=== PATIENT | female | born 1965 | race Caucasian/White ===

== ENCOUNTER 2019-04-22 12:55 | Day surgery (SDC) | payer OTHER, SELFPAY ==
[2019-04-22] VITALS (9 sets, daily range): BP systolic 98–126; BP diastolic 58–72; PULSE 76–96; RESP 12–18; TEMP 37.3–37.7; O2SAT 94–100; BMI 37.3
--- NOTE | 2019-04-22 13:14 | W.ED.ABDPA2 ---
HPI - Abdominal Pain General: Chief Complaint: Abdominal Pain Stated Complaint: RIGHT SIDE PAIN Time Seen by Provider: 04/22/19 13:14 Source: patient Mode of arrival: ambulatory Limitations: no limitations History of Present Illness: HPI narrative: Patient is a very nice 53-year-old female who presents to ED today with complaints of right lower abdominal pain that she initially noticed on Saturday; patient states pain has progressively worsened since onset; she complains of some associated nausea without vomiting; states she has not had a bowel movement since Saturday; she reports urinary habits are normal; she reports low-grade fevers of 99 as well as associated chills; previous abdominal surgeries include a cholecystectomy MD elicited complaint: abdominal pain Pertinent past history: none Onset (ago): day(s) Pain Consistency: constant Location: None Exacerbating factors: nothing Relieving factors: nothing Associated Symptoms: Reports chills and nausea; Denies change in stool character, coffee ground emesis, constipation, GI cramping, diarrhea, dysuria, excessive flatus, fever(s), heartburn, hematochezia, hematemesis, syncope and vomiting Review of Systems Const: Reports: chills; Denies: fever, body aches, fatigue or malaise Eyes: Denies: change in vision or blurry vision ENMT: Denies: enlarged tonsils or painful swallowing Card: Denies: chest pain, palpitations, irregular heart rhythm, lightheadedness, syncope or shortness of breath on exertion Resp: Denies: shortness of breath, productive cough or pain on inspiration GI: Reports: abdominal pain and nausea; Denies: vomiting, vomiting blood, coffee grounds in vomit, difficulty swallowing, heartburn/indigestion, diarrhea, constipation, cramping, excessive passing of gas, painful bowel movements, rectal pain, change in stool character or blood in stool : Denies: flank pain, difficulty urinating, painful urination, urinary frequency, urinary urgency, urinary hesitancy, vaginal odor, vaginal bleeding, vaginal discharge or pelvic pain Musc: Denies: neck pain, back pain or joint pain Skin/Breast: Denies: rash Neuro: Denies: headache PFSH ED PFSH: Statuses (acute, chronic, etc) shown below reflect problem list status as previously entered and may not be historically accurate Social History Smoking and tobacco status: never smoked Physical Exam Const: COMMON NORMALS: no apparent distress, oriented x3, no limitations, alert and well nourished Resp: COMMON NORMALS: normal respiratory effort and clear to auscultation bilaterally AUSCULTATION: clear to auscultation bilaterally Cardio: COMMON NORMALS: regular rate and regular rhythm RATE: regular rate RHYTHM: regular rhythm GI: COMMON NORMALS: soft to palpation, no hepatosplenomegaly and no masses AUSCULTATION: Yes normoactive bowel sounds PALPATION: Yes soft, Yes tender Details: LLQ and RLQ and Yes no hepatosplenomegaly : COMMON NORMALS: Yes no CVA tenderness BLADDER/KIDNEY EXAM: Yes no CVA tenderness Back/Pelvis: COMMON NORMALS: no CVA tenderness Neuro: COMMON NORMALS: oriented x3 SENSORIUM/ORIENTATION: Yes alert Skin: COMMON NORMALS: no rashes or lesions noted GENERAL SKIN EXAM: no rashes or lesions noted Course Consultations: Consultation #1: Dr. Mancini-will come see in ED and take to surgery Time: 15:15 Vital Signs: Vital signs: Vital Signs Temperature 99.2 F 04/22/19 12:57 Pulse Rate 90 04/22/19 14:24 Respiratory Rate 17 04/22/19 14:24 Blood Pressure 122/62 04/22/19 14:24 Pulse Oximetry 94 04/22/19 14:24 MDM - Abdominal Pain MDM Narrative: Medical decision making narrative: Pt will go straight to OR for appendectomy per Dr. Harrison Lab Data: Labs: Lab Results 04/22/19 04/22/19 04/22/19 Range/Units 13:10 13:20 13:20 WBC 15.5 H (4.0-10.0) 10^3/ uL RBC 5.56 H (4.1-5.3) 10^6/u L Hgb 14.4 (11.5-15.3) g/dL Hct 46.2 (37.0-47.0) % MCV 83.1 (81-99) fL MCH 25.9 L (28.0-34.0) pg MCHC 31.2 (30.0-36.0) g/dL RDW 13.2 (12.1-15.1) % Plt Count 333 (130-400) 10^3/c mm MPV 9.6 (7.4-10.4) fL Neut % (Auto) 85.8 % Lymph % (Auto) 8.5 % [place] % (Auto) 5.2 % Eos % (Auto) 0.0 % Baso % (Auto) 0.2 % Neut # (Auto) 13.3 H (1.8-7.7) 10^3/u L Lymph # (Auto) 1.3 (0.8-4.8) 10^3/u L [place] # (Auto) 0.8 (0.2-0.9) 10^3/u L Eos # (Auto) 0.0 (0.0-0.8) 10^3/u L Baso # (Auto) 0.0 (0.0-0.1) 10^3/u L Nucleated RBC % (a uto) 0 % Nucleated RBCs # 0.0 /100WBC Sodium 134 L (136-145) mmol/L Potassium 3.6 (3.5-5.1) mmol/L Chloride 93 L (98-107) mmol/L Carbon Dioxide 25 (22-29) mmol/L Anion Gap 19.6 H (5-19) BUN 18 (6-20) mg/dL Creatinine 0.8 (0.5-0.9) mg/dL GFR Calculation 74.7 L (90-130) mL/min Glucose 121 H (74-109) mg/dL Calcium 9.5 (8.5-10.5) mg/dL Total Bilirubin 0.5 (0.15-1.2) mg/dL AST 13 (0-32) U/L ALT 14 (0-33) U/L Alkaline Phosphata se 100 (35-105) IU/L Total Protein 8.8 H (6.6-8.7) g/dL Albumin 4.1 (3.5-5.2) g/dL Globulin 4.7 H (1.3-4.6) g/dL Urine Color Yellow (Yellow) Urine Appearance Sl hazy (CLEAR) Urine pH 5.0 (5-7) Ur Specific Gravit y 1.025 (1.005-1.030) Urine Protein 1+ H (Negative) Urine Glucose (UA) Norm (Normal) Urine Ketones 2+ H (Negative) Urine Occult Blood 3+ H (Negative) Urine Nitrate Negative (Negative) Urine Bilirubin 1+ H (NEGATIVE) Urine Urobilinogen 4 H (Negative) mg/dL Ur Leukocyte Ligia ase Negative (Negative) Urine RBC 10-15 H (0-2) /hpf Urine WBC None (0-5) /hpf Ur Squamous Epith Cells 15-25 H (0-5) Urine Bacteria 2+ H (NONE) Urine Mucus 2+ Imaging Data ^: CT Abd/Pel: Radiologist's impression: [address] [address] [address] Scan Report Signed Patient: Nette Sterling Unit #: [id number] : 1965 Age/Sex: 53 / F ADM Date: 04/22/19 Loc: ER Room/Bed: Attending Dr: Ordering Provider/Ordering MD: Christy Yan Date of Service: 04/22/19 Procedure(s): CT abdomen pelvis w con* [id number] Accession Number(s): [id number] Report Number: [id number] WS: [id number] CT ABDOMEN PELVIS TECHNIQUE: Contrast-enhanced CT of the abdomen and pelvis with coronal and sagittal reformatted images. CLINICAL INFORMATION: RLQ pain COMPARISON: None. DLP: 1484.[address] scans at [facility] use at least one of these dose optimization techniques: automated exposure control; mA and/or kV adjustment per patient size (includes targeted exams where dose is matched to clinical indication); or iterative reconstruction. FINDINGS: Dilated tortuous fluid-filled appendix in the right lower quadrant measuring 7 mm in transverse dimension. Surrounding inflammatory stranding and edema. Tiny amount of fluid. No evidence of perinephric abscess. No free air. Liver is normal. Normal portal vein and splenic vein. Cholecystectomy clips. Normal spleen. Normal GE junction. Bibasilar atelectasis. Adrenal glands are normal. Normal renal parenchymal enhancement. No hydronephrosis. Normal pancreas. Normal caliber abdominal aorta. No periaortic lymphadenopathy. Incidental fat-containing umbilical hernia. Notified JIA Goddard at 04/22/2019 3:[address]/CT abdomen pelvis w con* [id number] IMPRESSION: 1. Tortuous dilated fluid-filled appendix with inflammatory stranding consistent with acute appendicitis. No abscess. 2. No free fluid in the pelvis. 3. Prior cholecystectomy. 4. No hydronephrosis. Dictated By: Khang Rosa MD Signed By: Khang Rosa MD Signed Date/Time: 04/22/19 1517 DD/ 1502 Discharge Plan Discharge Patient Disposition: Admitted As Inpatient Clinical Impression: Acute appendicitis Qualifiers: Acute appendicitis type: with localized peritonitis Appendicitis gangrene presence: without gangrene Appendicitis perforation presence: without perforation Appendicitis abscess presence: without abscess Qualified Code(s): K35.30 - Acute appendicitis with localized peritonitis, without perforation or gangrene Condition: Stable Referrals: Vianca Campos DO [Primary Care Provider] - Coding Level of Care Code ED Glass Engraver for [facility]g Fwd Exam Problem Focused
--- NOTE | 2019-04-22 13:24 | PC.NURSE ---
Patient reports that she started hurting Saturday. Patient states that the symptoms has progressively got worse. Patient reports that she has had nausea, fever, and chills along with this. Patient states the pain is in her right lower abdomen. Patient reports that she has only had her gallbladder removed.
[2019-04-22 13:28] LABS: Basophils % 0.2 %; Hematocrit 46.2 % (37.0-47.0); Hemoglobin 14.4 g/dL (11.5-15.3); Lymphocytes # 1.3 10^3/uL (0.8-4.8); Lymphocytes % 8.5 %; Mean Corpuscular HGB Conc 31.2 g/dL (30.0-36.0); Mean Corpuscular Hemoglobin 25.9 pg (28.0-34.0); Mean Corpuscular Volume 83.1 fL (81-99); Mean Platelet Volume 9.6 fL (7.4-10.4); Monocytes # 0.8 10^3/uL (0.2-0.9); Monocytes % 5.2 %; Neutrophils # 13.3 10^3/uL (1.8-7.7); Neutrophils % 85.8 %; Nucleated Red Blood Cells % 0 %; Platelet Count 333 10^3/cmm (130-400); Red Blood Count 5.56 10^6/uL (4.1-5.3); Red Cell Distribution Width 13.2 % (12.1-15.1); White Blood Count 15.5 10^3/uL (4.0-10.0)
--- NOTE | 2019-04-22 13:29 | CT_ITS ---
WS: [id number] CT ABDOMEN PELVIS TECHNIQUE: Contrast-enhanced CT of the abdomen and pelvis with coronal and sagittal reformatted image s. CLINICAL INFORMATION: RLQ pain COMPARISON: None. DLP: 1484.[address] scans at [facility] use at least one of these dose optimization techniques: automat ed exposure control; mA and/or kV adjustment per patient size (includes targeted exams where dose is matched to clinical indication); or iterative reconstruction. FINDINGS: Dilated tortuous fluid-filled appendix in the right lower quadrant measuring 7 mm in transverse dimen shandra. Surrounding inflammatory stranding and edema. Tiny amount of fluid. No evidence of perinephric abscess. No free air. Liver is normal. Normal portal vein and splenic vein. Cholecystectomy clips. Normal spleen. Normal GE junction. Bibasilar atelectasis. Adrenal glands are normal. Normal renal parenchymal enhancement. No hydronephrosis. Normal pancreas. Normal caliber abdominal aorta. No periaortic lymphadenopathy. Incidental fat-containing umbilical hernia. Notified JIA Goddard at 04/22/2019 3:[address]/CT abdomen pelvis w con* [id number] IMPRESSION: 1. Tortuous dilated fluid-filled appendix with inflammatory stranding consiste nt with acute appendicitis. No abscess. 2. No free fluid in the pelvis. 3. Prior cholecystectomy. 4. No hydronephrosis.
[2019-04-22 13:42] LABS: Add Urine Microscopic? YES; Bilirubin Urine 1+ (NEGATIVE); Blood Urine 3+ (Negative); Glucose Urine UA Norm (Normal); Ketones Urine 2+ (Negative); Leukocyte Esterase Urine Negative (Negative); Nitrate Urine Negative (Negative); Protein Urine 1+ (Negative); Specific Gravity, Urine 1.025 (1.005-1.030); Urine Appearance SL Hazy (CLEAR); Urine Color Yellow (Yellow); Urobilinogen Urine 4 mg/dL (Negative)
[2019-04-22 13:49] LABS: Add Urine Culture? No; Bacteria Urine 2+; Mucus Urine 2+; Squamous Epithelial Cell Urine 15-25 (0-5)
[2019-04-22 13:49] LABS: Alanine Aminotransferase 14 U/L (0-33); Albumin Level 4.1 g/dL (3.5-5.2); Alkaline Phosphatase 100 IU/L (35-105); Anion Gap 19.6 (5-19); Aspartate Amino Transferase 13 U/L (0-32); Blood Urea Nitrogen 18 mg/dL (6-20); Calcium 9.5 mg/dL (8.5-10.5); Carbon Dioxide 25 mmol/L (22-29); Chloride 93 mmol/L (98-107); Globulin 4.7 g/dL (1.3-4.6); Glomerular Filtration Rate 74.7 mL/min (90-130); Glucose 121 mg/dL (74-109); Potassium 3.6 mmol/L (3.5-5.1); Sodium 134 mmol/L (136-145); Total Bilirubin 0.5 mg/dL (0.15-1.2); Total Protein 8.8 g/dL (6.6-8.7)
[2019-04-22] MEDS: sodium chloride 0.9% 1,000 ML 999 ML IV (13:54)
[2019-04-22] MEDS: ondansetron 2 mg/ML SDV 2 mL 4 MG IVP (13:55)
[2019-04-22] MEDS: iohexol 300 mg/mL 100 mL Btl IV (14:23)
--- NOTE | 2019-04-22 15:12 | XRR_ITS ---
PROCEDURE INFORMATION: Exam: XR Chest, 1 View Exam date and time: 04/22/2019 3:28 PM Age: 53 years old Clinical indication: Chest pain; Additional info: Cough/congestion TECHNIQUE: Imaging protocol: XR of the chest Views: 1 view. COMPARISON: No relevant prior studies available. FINDINGS: Lungs: Hyperinflation. No CHF or focal consolidation. Pleural space: Unremarkable. No pleural effusion. No pneumothorax. Heart/Mediastinum: Unremarkable. No cardiomegaly. Bones/joints: No acute findings. XR/XR chest 1V portable [id number] IMPRESSION: No acute findings.
[2019-04-22] MEDS: piperacillin-tazobactam 3.375 GM in sodium chloride 0.9% (plus) 50 ML IV (15:35)
[2019-04-22] MEDS: sodium chloride 0.9% 1,000 ML 75 ML IV (15:48)
--- NOTE | 2019-04-22 15:56 | P.ANES_ITS ---
Pre-Anesthetic Assessment Pre-Anesthetic Assessment: Height/Weight: Height 1.57 m Weight 92.533 kg Temp Pulse Resp BP Pulse Ox 99.2 F 91 17 126/68 95 04/22/19 12:57 04/22/19 15:49 04/22/19 15:49 04/22/19 15:49 04/22/19 15:49 Preop Diagnosis: appendicitis Familial anesthetic complications: No trouble Was Beta Tristen taken within 24 hours: N/A Last intake: last ate saturday evening, last drank water at 1430 Social: Social History: No alcohol and No tobacco Exam: Pre-Anes Outpt Exam: alert, oriented x 3, clear to auscultation bilaterally and regular rate & rhythm Airway: Cervical ROM: WNL MP: 2 Dentition: Caps Pulmonary: Pulmonary: None reported CV/HEM: CV/HEM: None reported : : None reported Hepatic: Hepatic: None reported GI: Comments: N/V/appendicitis Metabolic: Metabolic: Morbid obesity Neuropsych: Neuropsych: None reported Anesthetic Plan: ASA status: II Anesthesia: General Risk of > 500 ml bl ood loss (7ml/kg in children): No Meds/Allergies Current Medications: Current Medications Generic Name Dose Route Start Last Admin Trade Name Freq PRN Reason Stop Dose Admin Sodium Chloride 1,000 mls @ 75 ml s/hr 04/22/19 15:45 04/22/19 15:48 Sodium Chloride 0.9% IV 75 mls/hr .[id number] MICHELLE Administration PFSH Anesthesia PFSH: Social History Smoking and tobacco status: never smoked Data Anesthesia CBC & Chem 7: 04/22/19 13:20 04/22/19 13:20 Other Labs: Laboratory Results - last 48 hr 04/22/19 04/22/19 04/22/19 13:10 13:20 13:20 WBC 15.5 H RBC 5.56 H Hgb 14.4 Hct 46.2 MCV 83.1 MCH 25.9 L MCHC 31.2 RDW 13.2 Plt Count 333 MPV 9.6 Neut % (Auto) 85.8 Lymph % (Auto) 8.5 [place] % (Auto) 5.2 Eos % (Auto) 0.0 Baso % (Auto) 0.2 Neut # (Auto) 13.3 H Lymph # (Auto) 1.3 [place] # (Auto) 0.8 Eos # (Auto) 0.0 Baso # (Auto) 0.0 Nucleated RBC % (auto) 0 Nucleated RBCs # 0.0 Sodium 134 L Potassium 3.6 Chloride 93 L Carbon Dioxide 25 Anion Gap 19.6 H BUN 18 Creatinine 0.8 GFR Calculation 74.7 L Glucose 121 H Calcium 9.5 Total Bilirubin 0.5 AST 13 ALT 14 Alkaline Phosphatase 100 Total Protein 8.8 H Albumin 4.1 Globulin 4.7 H Urine Color Yellow Urine Appearance Sl hazy Urine pH 5.0 Ur Specific [place] 1.025 Urine Protein 1+ H Urine Glucose (UA) Norm Urine Ketones 2+ H Urine Occult Blood 3+ H Urine Nitrate Negative Urine Bilirubin 1+ H Urine Urobilinogen 4 H Ur Leukocyte Esterase Negative Urine RBC 10-15 H Urine WBC None Ur Squamous Epith Cells 15-25 H Urine Bacteria 2+ H Urine Mucus 2+ Cardiac Studies: No Data to Display
--- NOTE | 2019-04-22 16:24 | PM.HP ---
Providers/Chief Complaint Primary Care Provider: Vianca Campos DO Chief Complaint: RIGHT SIDE PAIN History of Present Illness Nette Sterling is a 53 year old female who presented to the ER today with right lower quadrant pain which started yesterday. Patient states the pain is remained localized to the right lower quadrant worse with moving. Patient has some nausea but no vomiting. She had fevers and chills but denies any constipation or diarrhea. No similar episodes in the past. Review of Systems Const: Denies: fever, chills, change in weight or fatigue Eyes: Denies: change in vision ENMT: Denies: painful swallowing Card: Denies: chest pain Resp: Denies: shortness of breath : Denies: painful urination Skin/Breast: Denies: rash, nipple discharge or breast mass/lump Neuro: Denies: seizure-like activity [place]/Lymph: Denies: easy bruising Medications/Allergies Home Medications Medication Instructions Recorded Confirmed Last Taken Type No Known Home Medications 04/22/19 04/22/19 Unknown History Allergies Allergy/AdvReac Type Severity Reaction Status Date / Time Penicillins Allergy Unknown Unknown Verified 04/22/19 15:27 PFSH Acute PFSH: Statuses (acute, chronic, etc) shown below reflect problem list status as previously entered and may not be historically accurate Surgical History History of laparoscopic cholecystectomy (Acute) Social History Smoking and tobacco status: never smoked Vitals/I&O/Wt Last Vital Signs Temp 99.1 F 04/22/19 16:20 Pulse 87 04/22/19 16:20 Resp 18 04/22/19 16:20 BP 123/59 04/22/19 16:20 Pulse Ox 95 04/22/19 16:20 04/22/19 04/22/19 04/22/19 06:59 14:59 22:59 Intake Total 1000 / 1000 Balance 1000 / 1000 Weight last 48 hrs Weight 204 lb Physical Exam Narrative: EXAM NARRATIVE: HEENT: Normocephalic Eye: Sclera /conjunctiva normal Respiratory and chest: Bilateral clear breath sounds on auscultation Cardiovascular: Normal S1 and S2 heart sounds Abdomen: Soft to palpation, tender right lower quadrant, well-healed laparoscopy scars Neurological: Oriented to place person and time Skin: Intact, no lesions appreciated on gross exam Data : 04/22/19 13:20 04/22/19 13:20 A&P Assessment and plan (1) Acute appendicitis: 53-year-old female with right lower quadrant pain, leukocytosis and CT scan findings suggestive of acute appendicitis Plan for laparoscopic possible open appendectomy Procedure, risks, benefits and alternatives have been discussed with the patient who wishes to proceed with surgery. Status: Acute Qualifiers: Acute appendicitis type: with localized peritonitis Appendicitis abscess presence: without abscess Appendicitis gangrene presence: without gangrene Appendicitis perforation presence: without perforation Qualified Code(s): K35.30 - Acute appendicitis with localized peritonitis, without perforation or gangrene Code(s): K35.80 - Unspecified acute appendicitis Attestations Medical Necessity Statement*: acute appendicitis Coding Level of Care Code Acute Machine Hoop Maker for [facility] Fwd Diagnoses Acute appendicitis K35.30 Acute appendicitis type: with localized peritonitis Appendicitis abscess presence: without abscess Appendicitis gangrene presence: without gangrene Appendicitis perforation presence: without perforation
--- NOTE | 2019-04-22 17:28 | PM.OP ---
Operative Report Date of procedure: 04/22/19 Pre-op Diagnosis: appendicitis Post-op Findings: Laparoscopic appendectomy Procedure Done: Laparoscopic appendectomy Pathology: none sent Surgeon: Richard Mancini Anesthesia: MAC Estimated blood loss (mL): 10 Condition: stable Disposition: PACU Procedure: The patient was taken to the Operating Room and intubated under general anesthesia after antibiotic had been administered. Using a 15 blade, a 1-cm infraumbilical incision was made and using open Claudette technique, the peritoneal cavity was entered. A 12mm port with balloon was placed and 14 mm of pneumoperitoneum was created and 10-mm 30 degree scope was introduced. Two separate 5mm ports were placed in the left and right lower quadrant under direct visualization. The appendix was noted in the right lower quadrant and appeared acutely inflamed with suppuration. Using [place] forceps, an opening was made in the mesoappendix near the base of the appendix. An Endo ZBIGNIEW stapler 45mm long 3.5mm blue load was introduced to divide the appendix at it's base. Using electrocautery, the mesoappendix including the appendicular artery was divided. There was no bleeding noted and the staple line appeared intact. The right lower quadrant was irrigated with saline and an EndoCatch bag was introduced to remove the appendix. All three ports were removed under direct visualization and there was no bleeding noted on the port sites. 10 cc 0.5% Marcaine was infiltrated at the port sites. The fascia at the umbilical port was closed using figure of eight 0-Vicryl sutures and subcutaneous tissue was approximated using 3-0 Vicryl and skin at all 3 port sites was closed using 4-0 Monocryl and Dermabond.
== END 2019-04-22 18:40 | disposition home or self-care (01) ==
LOC: ER 15:23 → OR 15:34
PROVIDERS: Family Medicine; Emergency Provider Physician Assistant; Family Provider Family Medicine; PCP Family Medicine; Visit Provider Surgery
PROC: 0DTJ4ZZ Resection of Appendix, Percutaneous Endoscopic Approach (ICD-10-PCS; CPT 44970; principal; 2019-04-22 16:15)
DX: K35.891 Other acute appendicitis without perforation, with gangrene (principal); E66.01 Morbid (severe) obesity due to excess calories; Z68.37 Body mass index [BMI] 37.0-37.9, adult
CPT/HCPCS: 44970; 12345; 36415; 71045; 74177; 80053; 81001; 85025; 88304; 96374; 99283; J0131; J1100; J2405; J2543; J2704; J2710; J3010; J3490; J7030; Q9967

== ENCOUNTER 2022-06-20 14:00 | Outpatient (CLI) | payer OTHER, SELFPAY ==
--- NOTE | 2022-06-20 14:12 | MM_ITS ---
WS: [id number] VIEWS: MLO and CC views both breasts. 3D digital tomosynthesis is also included in this exam. Comparison made with prior exam of 11/27/2005, 02/01/2015, 10/31/2018,. Findings: There was no sign of mass, architectural distortion or suspicious calcification in either breast. Th e breasts are fatty MM/[place] [id number] Impression: BI-RADS: 2-Benign FOLLOW-UP: 1 Year Follow-up This mammogram was also analyzed by the Computer Aided Detection System R2 Imag e [employer] Fisherman.
== END 2022-06-20 14:01 | disposition home or self-care (01) ==
LOC: RAD 14:01
PROVIDERS: Family Provider Family Medicine; PCP Family Medicine; Visit Provider Family Medicine
DX: Z12.31 Encounter for screening mammogram for malignant neoplasm of breast (principal)
CPT/HCPCS: 77063; 77067